=== PATIENT | female | born 1985 | race Caucasian/White ===

== ENCOUNTER 2024-02-22 00:39 | Emergency (ER) | payer MEDICAID ==
[~2024-02-22] VITALS: Ht 172.7 cm; Wt 56.8 kg
[2024-02-22 00:43] VITALS: RESP 16; TEMP 98.1
[2024-02-22 01:42] VITALS: BP 107/74; PULSE 98; O2SAT 97
== END 2024-02-22 01:49 ==
LOC: ER 00:39
DX: Z04.1 Encounter for examination and observation following transport accident (principal); R51.9 Headache, unspecified; M54.2 Cervicalgia; Z88.0 Allergy status to penicillin; V49.88XA Car occupant (driver) (passenger) injured in other specified transport accidents, initial encounter; Y93.89 Activity, other specified; Y92.89 Other specified places as the place of occurrence of the external cause; Y99.8 Other external cause status
CPT/HCPCS: 70450; 72125; 99284